=== PATIENT | female | born 1950 | race Caucasian/White ===

== ENCOUNTER → 2017-10-27 | Outpatient (CLI) | payer OTHER, BC ==
[~2017-10-27] MED LIST: AMLO-110 PO; ASPEC81 PO; ATEN-175 PO; BUTA50TA6 PO; CHOL200010 PO; CLON0.5T3 PO; MRLP17X PO; ZOLE5INJ IV
[2017-10-27 16:18] LABS: T3 FREE 3.03 pg/ml (2.30-4.20)
[2017-11-02 18:26] LABS: MICROSOMAL AB <1 IU/ML (<9)
== END | disposition home or self-care (01) ==
LOC: C.LAB 14:53
PROVIDERS: ATTEND Chiropractor
DX: M79.1 Myalgia (principal)